=== PATIENT | female | born 1970 | race Hispanic/Latino ===

== ENCOUNTER 2021-11-08 22:13 | Emergency (ER) | payer OTHER ==
[2021-11-09] MEDS ORDERED: Fluorescein Opthalmic Strip ONE (00:43)
[2021-11-09] MEDS ORDERED: Tetracaine 0.5% PF 4 ML BOT ONE (00:46)
== END 2021-11-09 01:56 | disposition home or self-care (01) ==
LOC: CSHERS 22:13
DX: H20.9 Unspecified iridocyclitis (principal); H16.002 Unspecified corneal ulcer, left eye; I10 Essential (primary) hypertension; Z86.73 Personal history of transient ischemic attack (TIA), and cerebral infarction without residual deficits; F17.210 Nicotine dependence, cigarettes, uncomplicated; Z79.899 Other long term (current) drug therapy
CPT/HCPCS: 99283